=== PATIENT | female | born 1950 | race African-American/Black ===

== ENCOUNTER 2018-02-28 12:23 | Outpatient (CLI) | payer OTHER ==
[2018-02-28] MEDS ORDERED: Gadobenate Dimeglumine 529 MG/1 ML (20ML VIAL) ONE (14:07)
--- NOTE | 2018-02-28 14:58 | MRI ---
MRI BRAIN AND INTERNAL AUDITORY CANALS WITH AND WITHOUT CONTRAST: DATE: 02-28-18 HISTORY: 67-year-old female with J32.9 chronic sinusitis, G96.0 CSF leak, and tinnitus. TECHNIQUE: Multiple sequences obtained in axial, sagittal, and coronal planes; both whole brain images and thin slices through the IAC's, pre and post IV injection of gadolinium-based contrast agent: 13 ml MultiHa nce FINDINGS: The ventricles are normal in size and configuration. There is no restricted diffusion, abnormal intr aaxial enhancement, mass, midline shift or any other mass effect, recent intraaxial hemorrhage, or ex traaxial fluid collection. There is a moderate degree of T2-hyperintensities in the cerebral white ma tter consistent with chronic ischemic white matter changes due to microvascular atherosclerosis. There is no abnormal enhancement, mass, or morphologic abnormality, involving the cerebellopontine an gles, 7th-8th nerve complexes, internal auditory canals, cochleae, vestibules, vestibular aqueducts, or semicircular canals. IMPRESSION: 1. Mild-moderate chronic ischemic white matter changes. 2. Otherwise negative. 3) If there is desire to evaluate for CSF leak into the paranasal sinuses, one option is to perform a CT cisternogram (thin slice direct coronal CT scan of the paranasal sinuses pre and post intrathecal injection of iodinated contrast via myelogram). marva POS: JONE
== END 2018-02-28 12:24 | disposition home or self-care (01) ==
LOC: MRI 12:23
PROVIDERS: ATTEND Otolaryngology Plastic Surgery within the Head & Neck
DX: G96.0 Cerebrospinal fluid leak (principal); J32.9 Chronic sinusitis, unspecified
CPT/HCPCS: 70553; A9579